=== PATIENT | female | born 1945 | race Caucasian/White ===

== ENCOUNTER 2017-09-28 08:28 | Emergency (ER) | payer MEDICARE ==
[2017-09-28] MEDS ORDERED: Acetaminophen 500 MG TAB ONE (09:07)
[2017-09-28 09:47] LABS: #Lymphocytes 0.5 thou/uL (1.20-3.40); #Monocytes 0.4 thou/uL (0.11-0.59); #Neutrophils 6.4 thou/uL (1.40-6.50); %Basophils 0.2 % (0.0-1.0); %Eosinophils 0.3 % (0.0-10.0); %Lymphocytes 6.7 % (21.0-51.0); %Monocytes 4.9 % (0.0-10.0); %Neutrophils 87.9 % (42.0-75.0); Hemoglobin 11.4 g/dL (12.0-16.0); Mean Corpuscular HGB CONC 34.9 g/dL (32.0-36.0); Mean Corpuscular Hemoglobin 33.8 pg (27.0-31.0); Mean Platelet Volume 7.7 fL (7.4-10.4); Platelet Count 151 thou/uL (130-400); RBC Distribution Width 12.8 % (11.5-14.5); Red Blood Cell (RBC) Count 3.37 mill/uL (4.20-5.40); White Blood Cell (WBC) Count 7.3 thou/uL (4.8-10.8)
[2017-09-28 10:12] LABS: ALT (SGPT) 158 U/L (8-55); AST (SGOT) 300 U/L (5-34); Albumin 3.9 g/dL (3.4-4.8); Alkaline Phosphatase 97 U/L (40-150); Anion Gap 14 mmol/L (10-20); BUN (Urea Nitrogen) 25 mg/dL (9.8-20.1); Bilirubin, Total 1.5 mg/dL (0.2-1.2); CK (CPK) 48 U/L (29-168); Calc. Creatinine Clearance 0 mL/min (70-130); Calcium 9.2 mg/dL (7.8-10.44); Carbon Dioxide 24 mmol/L (23-31); Chloride 105 mmol/L (98-107); Estimated GFR-MDRD 61; Globulin 2.6 g/dL (2.4-3.5); Glucose 124 mg/dL (83-110); Lipase 35 U/L (8-78); Potassium 4.2 mmol/L (3.5-5.1); Protein, Total 6.5 g/dL (6.0-8.3); Sodium 139 mmol/L (136-145)
--- NOTE | 2017-09-28 10:50 | ULT ---
GALLBLADDER ULTRASOUND: History: Right sided abdomen pain. FINDINGS: Real-time imaging of the right upper quadrant demonstrates some small echogenic foci with some faint shadowing within the gallbladder lumen consistent with some small stones. Common duct is 4 mm. Visual ized liver parenchyma shows no focal abnormalities. Pancreas is obscured. Right kidney is normal in s ize and not obstructed. There is mild cortical thinning present. IMPRESSION: Small gallstones with a normal caliber common duct and a negative ultrasound Benavides's sign. POS: [facility]
[2017-09-28 11:38] LABS: Bilirubin Small (Negative); Blood, Urine Negative (Negative); Clarity CLEAR (Clear); Glucose, Urine (Dipstick) Negative (Negative); Leukocyte Trace (Negative); Nitrite Negative (Negative); Protein, Urine (Dipstick) Negative (Neg-Trace); Specific Gravity, Urine 1.019 (1.002-1.036)
[2017-09-28 11:39] LABS: Bacteria/HPF None Seen HPF (None Seen); Hyaline Casts/LPF 0-3 HYALINE CAST LPF (0-3 Hyaline); Pathc Cast-AUWi Flag 0.14 (0-2.49); RBC/HPF 0-3 HPF (0-3); Squamous Epithelial 0-3 HPF (0-3); WBC/HPF 0-3 HPF (0-3)
--- NOTE | 2017-11-27 16:12 | EKG ---
Test Reason : ER INDICATION Blood Pressure : / mmHG Vent. Rate : 067 BPM Atrial Rate : 067 BPM P-R Int : 152 ms QRS Dur : 130 ms QT Int : 426 ms P-R-T Axes : 033 001 015 degrees QTc Int : 450 ms Normal sinus rhythm Right bundle branch block Abnormal ECG Confirmed by GERDA QUIROS, AYLIN ([id number]), order editor MATTHEW SHEIKH ([id number]) on 11/27/2017 4:11:30 PM Referred By: Confirmed By:AYLIN LORENZ MD
== END 2017-09-28 14:17 | disposition home or self-care (01) ==
LOC: ERS 08:28
DX: K80.20 Calculus of gallbladder without cholecystitis without obstruction (principal); J45.909 Unspecified asthma, uncomplicated; I10 Essential (primary) hypertension; K21.9 Gastro-esophageal reflux disease without esophagitis
CPT/HCPCS: 36415; 76705; 80053; 81003; 81015; 82550; 83605; 83690; 85025; 87040; 87077; 87149; 87186; 87804; 93005

== ENCOUNTER 2017-09-29 13:57 | Inpatient (IN) | payer MEDICARE ==
[2017-09-29 14:50] LABS: #Lymphocytes 0.5 thou/uL (1.20-3.40); #Monocytes 0.5 thou/uL (0.11-0.59); #Neutrophils 5.9 thou/uL (1.40-6.50); %Basophils 0.4 % (0.0-1.0); %Eosinophils 0.7 % (0.0-10.0); %Lymphocytes 7.5 % (21.0-51.0); %Monocytes 7.3 % (0.0-10.0); %Neutrophils 84.2 % (42.0-75.0); Hemoglobin 11.8 g/dL (12.0-16.0); Mean Corpuscular HGB CONC 34.7 g/dL (32.0-36.0); Mean Corpuscular Hemoglobin 33.3 pg (27.0-31.0); Mean Platelet Volume 7.4 fL (7.4-10.4); Platelet Count 152 thou/uL (130-400); RBC Distribution Width 13.1 % (11.5-14.5); Red Blood Cell (RBC) Count 3.54 mill/uL (4.20-5.40)
[2017-09-29 15:28] LABS: ALT (SGPT) 159 U/L (8-55); AST (SGOT) 118 U/L (5-34); Albumin 3.9 g/dL (3.4-4.8); Alkaline Phosphatase 107 U/L (40-150); Anion Gap 9 mmol/L (10-20); BUN (Urea Nitrogen) 27 mg/dL (9.8-20.1); Bilirubin, Total 1.5 mg/dL (0.2-1.2); Calc. Creatinine Clearance 0 mL/min (70-130); Calcium 9.4 mg/dL (7.8-10.44); Carbon Dioxide 28 mmol/L (23-31); Chloride 103 mmol/L (98-107); Estimated GFR-MDRD 37; Globulin 2.8 g/dL (2.4-3.5); Glucose 108 mg/dL (83-110); Lipase 26 U/L (8-78); Potassium 3.9 mmol/L (3.5-5.1); Protein, Total 6.7 g/dL (6.0-8.3); Sodium 136 mmol/L (136-145)
[2017-09-29] MEDS ORDERED: Meropenem 1 GM in Sodium Chloride 0.9% 100 ML IVPB SCH (15:30)
[2017-09-29] MEDS ORDERED: MEROPENEM 1 GM/50 ML 1 GM in Premix Bag 1 BAG IVPB SCH (15:30)
[2017-09-29] MEDS ORDERED: Ondansetron HCl/PF 4 MG/2 ML Vial IVP PRN (17:56)
[2017-09-29] MEDS ORDERED: Bisacodyl 5 MG TAB PO PRN (17:56)
[2017-09-29 18:33] VITALS: BMI 38.2
--- NOTE | 2017-09-29 19:20 | HP ---
PRIMARY CARE PHYSICIAN: Austin Seaman M.D. CHIEF COMPLAINT: Bacteremia. HISTORY OF PRESENT ILLNESS: Ms. Sequeira is a pleasant 71-year-old lady who was seen at [facility] on 09/29/2017. She has a history of rheumatoid arthritis, on methotrexate therapy for the last one year. She also reports receiving a steroid injection for shingles about 4 or 5 weeks ago. She was doing well until yesterday morning. Yesterday morning, she developed right upper quadrant pain. She describes it as sharp, nonradiating. She came to the emergency room. The pain resolved. She was diagnosed with cholelithiasis. She was discharged home yesterday. Today, patient was asked to come to the emergency room because her blood cultures came back positive. She currently denies any chest pain. She reports having a temperature of 100 degrees Fahrenheit at home. She denies any nausea or vomiting. She denies any diarrhea or abdominal pain. REVIEW OF SYSTEMS: The following complete review of systems was negative, unless otherwise mentioned in the HPI or below: Constitutional: Weight loss or gain, ability to conduct usual activities. Skin: Rash, itching. Eyes: Double vision, pain. ENT/Mouth: Nose bleeding, neck stiffness, pain, tenderness. Cardiovascular: Palpitations, dyspnea on exertion, orthopnea. Respiratory: Shortness of breath, wheezing, cough, hemoptysis, fever or night sweats. Gastrointestinal: Poor appetite, abdominal pain, heartburn, nausea, vomiting, constipation, or diarrhea. Genitourinary: Urgency, frequency, dysuria, nocturia. Musculoskeletal: Pain, swelling. Neurologic/Psychiatric: Anxiety, depression. Allergy/Immunologic: Skin rash, bleeding tendency. PAST MEDICAL HISTORY: Significant for hypertension, asthma, gastroesophageal reflux disease, dyslipidemia, hypothyroidism, and rheumatoid arthritis. PAST SURGICAL HISTORY: Tonsillectomy, hysterectomy, hemorrhoidectomy and fissure repair. SOCIAL HISTORY: The patient denies tobacco use, alcohol use or recreational drug use. FAMILY HISTORY: Significant for myocardial infarction in both parents. ALLERGIES: No known drug allergies. CURRENT MEDICATIONS: Include atenolol 50 mg daily, folic acid 1 mg daily, hydrochlorothiazide 12.5 mg daily, lisinopril 20 mg daily, levothyroxine 125 mcg daily, meloxicam 15 mg daily, methotrexate 2.5 mg daily, pantoprazole 40 mg daily, simvastatin 40 mg daily, and sulfasalazine 500 mg daily. PHYSICAL EXAMINATION: GENERAL: Ms. Sequeira is awake and alert, not in acute distress. She is afebrile. She is obese. VITAL SIGNS: Blood pressure is 113/64, pulse is 51. She is breathing at rate of 18, and saturating 94% on room air. EYES: No scleral icterus. No conjunctival pallor. ENT: Dry mucosal membranes, no oropharyngeal erythema or exudates. NECK: Supple, nontender, normal range of movement. Trachea is midline. RESPIRATORY: Accessory muscles of breathing are not active. Chest wall movements are symmetric bilaterally. LUNGS: Clear to auscultation without wheeze, rhonchi or crepitations. CARDIOVASCULAR: S1 and S2 are heard, regular. Peripheral pulses palpable. No carotid bruit, no pericardial rub. ABDOMEN: Soft, nontender, bowel sounds heard, no hepatomegaly, no splenomegaly. NEUROLOGIC: Cranial nerves II-XII intact. Deep tendon reflexes are 2+. MUSCULOSKELETAL: Power is 5/5 in all 4 extremities. Normal range of movement at all major extremity joints. SKIN: No rashes or subcutaneous nodules. LYMPHATIC: No cervical lymphadenopathy. PSYCHIATRIC: Normal mood, normal affect. The patient is oriented to person, place, and time. LABORATORY DATA: Ms. Sequeira's labs and investigations were reviewed. She had an abdominal ultrasound yesterday, which showed small gallstones within normal caliber common duct and a negative ultrasound Benavides sign. Today, she has white count of 7000, hemoglobin 11.8, platelet count 152, normal electrolytes, elevated blood urea nitrogen of 27, elevated creatinine of 1.38, last known creatinine 0.91 yesterday, elevated total bilirubin of 1.5, same as yesterday, elevated AST of 118, down from 300 yesterday and elevated ALT of 159 , up from 158 yesterday. Her alkaline phosphatase level is normal. Lactic acid level is normal. Blood cultures from yesterday's emergency room visit are reporting positive for gram negative nicolas in 1 culture and Escherichia coli in the other culture. ASSESSMENT AND PLAN: Ms. Sequeira is a pleasant 71-year-old lady who was seen at [facility] on 09/29/2017. Her problem list includes: 1. Bacteremia: Ms. Sequeira will be admitted to the hospital for further management, including broad-spectrum intravenous antibiotics. Given the preliminary identification of Escherichia coli, we will start her on meropenem to cover for ESBL positive organisms. Await final cultures and taper antibiotic spectrum. Please note patient is an immunocompromised patient, given her history of methotrexate use. She also reports being on steroid injections every 3 months in the past, but not recently. 2. Rheumatoid arthritis, stable. 3. Dyslipidemia: Stable, continue statin. 4. Gastroesophageal reflux disease: Stable, continue proton pump inhibitor. 5. Hypertension: Monitor vital signs, titrate antihypertensives as needed. Please note that patient is bradycardic at this time. If this continues, may need her atenolol discontinued. 6. Asthma: Stable. Many thanks for allowing me to participate in your patient's care. Please feel free to contact me with any questions or concerns. LEVEL OF RISK: Moderate. LEVEL OF COMPLEXITY: Moderate. MTDD
[2017-09-29] MEDS: Sodium Chloride 0.9% 1,000 ML IV SCH (21:25)
[2017-09-30] MEDS: Meropenem 1 GM in Sodium Chloride 0.9% 100 ML IVPB SCH ×2 (00:30→09:14)
[2017-09-30 05:11] LABS: #Eosinphils 0.1 thou/uL (0.0-0.7); #Monocytes 0.7 thou/uL (0.11-0.59); #Neutrophils 3.6 thou/uL (1.40-6.50); %Basophils 0.4 % (0.0-1.0); %Eosinophils 1.4 % (0.0-10.0); %Lymphocytes 18.9 % (21.0-51.0); %Monocytes 12.8 % (0.0-10.0); %Neutrophils 66.5 % (42.0-75.0); Hemoglobin 10.8 g/dL (12.0-16.0); Mean Corpuscular HGB CONC 35.2 g/dL (32.0-36.0); Mean Corpuscular Hemoglobin 33.8 pg (27.0-31.0); Mean Platelet Volume 8.1 fL (7.4-10.4); Platelet Count 142 thou/uL (130-400); RBC Distribution Width 12.8 % (11.5-14.5); Red Blood Cell (RBC) Count 3.18 mill/uL (4.20-5.40); White Blood Cell (WBC) Count 5.5 thou/uL (4.8-10.8)
[2017-09-30 05:14] LABS: ALT (SGPT) 109 U/L (8-55); AST (SGOT) 64 U/L (5-34); Albumin 3.4 g/dL (3.4-4.8); Alkaline Phosphatase 94 U/L (40-150); Anion Gap 7 mmol/L (10-20); BUN (Urea Nitrogen) 23 mg/dL (9.8-20.1); Bilirubin, Total 0.9 mg/dL (0.2-1.2); Calc. Creatinine Clearance 68 mL/min (70-130); Carbon Dioxide 29 mmol/L (23-31); Chloride 106 mmol/L (98-107); Estimated GFR-MDRD 45; Globulin 2.4 g/dL (2.4-3.5); Glucose 99 mg/dL (83-110); Potassium 3.5 mmol/L (3.5-5.1); Protein, Total 5.8 g/dL (6.0-8.3); Sodium 138 mmol/L (136-145)
[2017-09-30] MEDS ORDERED: MEROPENEM 1 GM/50 ML 1 GM in Premix Bag 1 BAG IVPB SCH (08:30)
[2017-09-30] MEDS ORDERED: Methotrexate Sodium 2.5 MG TAB PO SCH (10:00)
[2017-09-30] MEDS: Sodium Chloride 0.9% 1,000 ML IV SCH (11:26)
--- NOTE | 2017-09-30 11:39 | PDOC.PN ---
- Subjective Encounter Start Date: 09/30/17 Encounter Start Time: 07:20 Pt seen for followup re: bacteremia. Denies chest pain, shortness of breath, fevers or chills. - Objective MAR Reviewed: Yes Vital Signs & Weight: Vital Signs (12 hours) Temp Pulse Resp BP Pulse Ox 09/30/17 10:30 99.1 F 55 L 18 101/65 95 Result Diagrams: 09/30/17 04:11 09/30/17 04:11 Phys Exam - Physical Examination Obese HEENT: PERRLA, moist MMs, sclera anicteric, oral pharynx no lesions Neck: no nodes, no JVD, supple, full ROM Respiratory: no wheezing, no rales, no rhonchi, clear to auscultation bilateral Cardiovascular: RRR, no rub Gastrointestinal: soft, non-tender, no distention, positive bowel sounds Neurological: moves all 4 limbs Psychiatric: normal affect, A&O x 3 Dx/Plan (1) Bacteremia Code(s): R78.81 - BACTEREMIA Status: Acute Comment: E. coli bacteremia. Step down to oral antibiotics tomorrow (after possible surgery). (2) Cholelithiasis Code(s): K80.20 - CALCULUS OF GALLBLADDER W/O CHOLECYSTITIS W/O OBSTRUCTION Status: Acute Comment: Surgical consult for elimination of bacteremic source (3) GLENN (acute kidney injury) Code(s): N17.9 - ACUTE KIDNEY FAILURE, UNSPECIFIED Status: Acute Comment: Creatinine improving, continue IV fluids and hold nephrotoxic medications (4) HTN (hypertension) Code(s): I10 - ESSENTIAL (PRIMARY) HYPERTENSION Status: Chronic Comment: Monitor vital signs, titrate antihypertensives as needed (5) Dyslipidemia Code(s): E78.5 - HYPERLIPIDEMIA, UNSPECIFIED Status: Chronic Comment: continue statin (6) Hypothyroidism Code(s): E03.9 - HYPOTHYROIDISM, UNSPECIFIED Status: Chronic Comment: continue synthroid (7) Rheumatoid arthritis Code(s): M06.9 - RHEUMATOID ARTHRITIS, UNSPECIFIED Status: Chronic Comment: continue methotrexate and folic acid - Plan continue antibiotics, out of bed/ambulate, DVT proph w/SCDs * . Review of Systems - Review of Systems Constitutional: negative: fever, chills, sweats, weakness, malaise Respiratory: negative: Cough, Shortness of Breath, Hemoptysis, SOB with Excertion, Pleuritic Pain, Wheezing Cardiovascular: negative: chest pain, palpitations, orthopnea, paroxysmal nocturnal dyspnea, edema, light headedness Gastrointestinal: negative: Nausea, Vomiting, Abdominal Pain, Diarrhea, Constipation, Melena, Hematochezia Genitourinary: negative: Dysuria, Frequency, Incontinence, Hematuria, Retention Skin: negative: Rash, Lesions, Josep, Bruising - Medications/Allergies Allergies/Adverse Reactions: Allergies Allergy/AdvReac Type Severity Reaction Status Date / Time No Known Allergies Allergy Verified 09/29/17 22:29 Medications: Current Medications Atorvastatin Calcium (Lipitor) 20 mg PO DAILY [facility] Bisacodyl (Dulcolax) 10 mg PO DAILYPRN PRN PRN Reason: Constipation Folic Acid (Folvite) 1 mg PO DAILY [facility] Sodium Chloride (Normal Saline 0.9%) 1,000 mls @ 70 mls/hr IV .[id number] [facility] Last Admin: 09/30/17 11:26 Dose: 1,000 mls Meropenem 1 gm/ Device 50 mls @ 100 mls/hr IVPB 0800,1600,2359 [facility] Meropenem 1 gm/ Device 50 mls @ 100 mls/hr IVPB NOW [facility] Stop: 09/30/17 12:00 Last Admin: 09/30/17 09:36 Dose: 50 mls Levothyroxine Sodium (Synthroid) 125 mcg PO 0600 [facility] Methotrexate Sodium (Methotrexate Sodium) 12.5 mg PO Sa@0900 [facility] Ondansetron HCl (Zofran) 4 mg IVP Q6H PRN PRN Reason: Nausea/Vomiting Pantoprazole Sodium (Protonix) 40 mg PO DAILY [facility] Sulfasalazine (Azulfidine) 500 mg PO BIDPC [facility]
[2017-09-30] MEDS ORDERED: Ketorolac Tromethamine 30 MG/ML VIAL IVP SCH (11:45)
[2017-09-30] MEDS ORDERED: Acetaminophen 1,000 MG in Premix Bag 1 BAG IVPB SCH (11:45)
[2017-09-30] MEDS ORDERED: Scopolamine 1.5 mg/72 hour Patch TD SCH ×2 (11:45→12:00)
[2017-09-30] MEDS: MEROPENEM 1 GM/50 ML 1 GM in Premix Bag 1 BAG IVPB SCH (15:30)
[2017-09-30] MEDS: sulfaSALAzine 500 MG TAB PO SCH (17:47)
[2017-09-30] MEDS ORDERED: sulfaSALAzine 500 MG TAB PO SCH (18:00)
--- NOTE | 2017-09-30 18:17 | HP ---
HISTORY OF PRESENT ILLNESS: Cayla Sequeira is a 71-year-old female who presented to the emergency r o on 09/28/2017 with right upper quadrant pain and back radiation. She has a long history of past reflux and epigastric intermittent pains. Ultrasound of gallbladder revealed gallstones. She on elaine t occasion was noted to have had two blood cultures later found to be positive for E. coli, 2 of 2. She had repeat blood cultures on return to the emergency room on 09/29/2017 that demonstrated no grow th to date. In the emergency room, her white count was noted be 5 and hemoglobin 10.8. Her liver fu nction tests were essentially normal with bilirubin 1.5 on admission, 1.5 yesterday morning, repeat b ilirubin this morning normal. Her creatinine is improved from 1.38 to 1.18. Her AST, ALT have impro jaleel from 118/159 respectfully to 64/109 today. Her lipase is normal. Ultrasound revealed gallstones , normal bile duct caliber. Urine cultures not obtained. ALLERGIES: None. TOBACCO: None. ALCOHOL: Rarely. HOME MEDICATIONS: Lisinopril/hydrochlorothiazide 20/12.5 daily, folic acid a day, atenolol 50 mg b.i .d., meloxicam 15 mg daily, Synthroid 125 mcg daily, methotrexate 12.5 mg every 7 day, simvastatin 40 mg a day, Protonix 40 mg a day, sulfasalazine 500 mg p.o. b.i.d. PAST MEDICAL HISTORY: 1. Rheumatoid arthritis. 2. Obesity. 3. Intentional weight loss of 70-80 pounds. 4. Dyslipidemia. 5. Hypothyroidism. 6. History of GERD. PAST SURGICAL HISTORY: Tonsillectomy, hysterectomy, hemorrhoidectomy and anal fissure repair. REVIEW OF SYSTEMS: Ten point noncontributory, otherwise, she is up to date on colonoscopies. PHYSICAL EXAMINATION: VITAL SIGNS: 5 foot 4, 223 pounds, 38 BMI, 99 degrees, 55, 101/65. HEENT: Intact. No focal deficit, no lymphadenopathy, neck, axilla, or groin. LUNGS: Clear to auscultation. CARDIAC: Regular rate and rhythm without murmur or gallop. ABDOMEN: Soft, nontender, no masses. EXTREMITIES: Unremarkable. ASSESSMENT AND PLAN: 1. Mild chronic kidney disease. 2. Rheumatoid arthritis. 3. Positive blood cultures, probably not related to her gallbladder, but could be from urinary tract infection. Urine culture is not obtained, probably would not be worth obtaining at this time. She remains afebrile. 4. Symptomatic gallstones. I would recommend laparoscopic video cholecystectomy. Risk of infection , bleeding, visceral biliary injury, open procedure, discussed, she consents. Due to her bilirubin e levation 1.5, we will plan cholangiograms. Risk and benefits explained, and she consents. Questions answered. I explained her that her positive blood cultures are probably not secondary to her gallbl adder disease, but a laparoscopic cholecystectomy should be considered as she is symptomatic gallston es and to avoid future biliary attacks and to prevent complications of cholelithiasis. Since she is symptomatic, we would proceed with laparoscopic cholecystectomy.
[2017-09-30] MEDS: SIMVASTATIN 40 MG PO SCH (20:31)
[2017-10-01] MEDS: MEROPENEM 1 GM/50 ML 1 GM in Premix Bag 1 BAG IVPB SCH ×4 (00:33→23:14)
[2017-10-01] MEDS: Sodium Chloride 0.9% 1,000 ML IV SCH ×5 (03:43→23:15)
[2017-10-01] MEDS: Levothyroxine Sodium 125 MCG TAB PO SCH (05:48)
[2017-10-01] MEDS ORDERED: Levothyroxine Sodium 125 MCG TAB PO SCH (06:00)
[2017-10-01] MEDS ORDERED: Ketorolac Tromethamine 30 MG/ML VIAL IVP SCH (06:00)
[2017-10-01] MEDS ORDERED: Acetaminophen 1,000 MG in Premix Bag 1 BAG IVPB SCH (06:00)
[2017-10-01] MEDS: Folic Acid 1 MG TAB PO SCH (07:19)
[2017-10-01] MEDS: sulfaSALAzine 500 MG TAB PO SCH ×2 (07:20→18:56)
[2017-10-01] MEDS ORDERED: Atorvastatin Calcium 20 MG TAB PO SCH (09:00)
[2017-10-01] MEDS ORDERED: Folic Acid 1 MG TAB PO SCH (09:00)
--- NOTE | 2017-10-01 14:09 | PDOC.PN ---
- Subjective Encounter Start Date: 10/01/17 Encounter Start Time: 12:00 Subjective: no abd pain or nausea -: feels better, is npo for lap radha - Objective MAR Reviewed: Yes Vital Signs & Weight: Vital Signs (12 hours) Temp Pulse Resp BP BP Pulse Ox 10/01/17 11:49 98.3 F 48 L 16 125/76 99 10/01/17 08:00 98.4 F 51 L 16 10/01/17 07:40 98.4 F 51 L 16 109/69 96 10/01/17 04:00 98.2 F 51 L 18 128/70 93 L I&O: 09/30/17 10/01/17 10/02/17 06:59 06:59 06:59 Intake Total 1530 Balance 1530 Result Diagrams: 09/30/17 04:11 09/30/17 04:11 Phys Exam - Physical Examination HEENT: PERRLA, moist MMs Neck: no JVD, supple Respiratory: no wheezing, no rales Cardiovascular: RRR, no significant murmur Gastrointestinal: soft, non-tender, positive bowel sounds Musculoskeletal: no edema, pulses present Neurological: non-focal, moves all 4 limbs Psychiatric: normal affect, A&O x 3 Dx/Plan (1) Bacteremia Code(s): R78.81 - BACTEREMIA Status: Acute Comment: E. coli bacteremia. (2) Cholelithiasis Code(s): K80.20 - CALCULUS OF GALLBLADDER W/O CHOLECYSTITIS W/O OBSTRUCTION Status: Acute Qualifiers: Cholelithiasis location: gallbladder Cholecystitis presence: with cholecystitis Cholecystitis acuity: acute and chronic Biliary obstruction: with biliary obstruction Qualified Code(s): K80.13 - Calculus of gallbladder with acute and chronic cholecystitis with obstruction (3) Dyslipidemia Code(s): E78.5 - HYPERLIPIDEMIA, UNSPECIFIED Status: Chronic Comment: continue statin (4) HTN (hypertension) Code(s): I10 - ESSENTIAL (PRIMARY) HYPERTENSION Status: Chronic Qualifiers: Hypertension type: essential hypertension Qualified Code(s): I10 - Essential (primary) hypertension Comment: Monitor vital signs, titrate antihypertensives as needed (5) Hypothyroidism Code(s): E03.9 - HYPOTHYROIDISM, UNSPECIFIED Status: Chronic Qualifiers: Hypothyroidism type: unspecified Qualified Code(s): E03.9 - Hypothyroidism , unspecified Comment: continue synthroid (6) Rheumatoid arthritis Code(s): M06.9 - RHEUMATOID ARTHRITIS, UNSPECIFIED Status: Chronic Qualifiers: Rheumatoid arthritis location: unspecified site Rheumatoid factor presence : unspecified presence Qualified Code(s): M06.9 - Rheumatoid arthritis, unspecified Comment: continue methotrexate and folic acid (7) Chronic anemia Code(s): D64.9 - ANEMIA, UNSPECIFIED Status: Chronic - Plan for lap radha today -: may switch antibiotics to levaquin daily for 7 days due to bacteremia -: is on gentle iv hydration until surgery -: d/w daughters and patient at bedside -: hemostable, has been afebrile from yesterday * . Review of Systems - Medications/Allergies Allergies/Adverse Reactions: Allergies Allergy/AdvReac Type Severity Reaction Status Date / Time No Known Allergies Allergy Verified 09/29/17 22:29 Medications: Current Medications Bisacodyl (Dulcolax) 10 mg PO DAILYPRN PRN PRN Reason: Constipation Sodium Chloride (Normal Saline 0.9%) 1,000 mls @ 70 mls/hr IV .[id number] [facility] Last Admin: 10/01/17 08:42 Dose: Not Given Meropenem 1 gm/ Device 50 mls @ 100 mls/hr IVPB 0800,1600,2359 [facility] Last Admin: 10/01/17 08:23 Dose: 50 mls Sodium Chloride (Normal Saline 0.9%) 1,000 mls @ 100 mls/hr IV .Q10H [facility] Last Admin: 10/01/17 08:24 Dose: 1,000 mls Acetaminophen 1,000 mg/ Device 100 mls @ 400 mls/hr IVPB [facility] Stop: 10/01/17 21:00 Ketorolac Tromethamine (Toradol) 30 mg IVP [facility] Stop: 10/01/17 21:00 Methotrexate Sodium (Methotrexate Sodium) 12.5 mg PO Sa@0900 [facility] Ondansetron HCl (Zofran) 4 mg IVP Q6H PRN PRN Reason: Nausea/Vomiting Simvastatin 40 Mg 0 each PO HS [facility] Last Admin: 09/30/17 20:31 Dose: 1 each Sulfasalazine 500 Mg (Tab) 0 each PO BID-PC [facility] Last Admin: 04/20/18 07:20 Dose: Not Given Folic Acid 1 Mg Tab 0 each PO QAM-WM [facility] Last Admin: 10/01/17 07:19 Dose: Not Given Pantoprazole 40 Mg (Tab) 0 each PO DAILY [facility] Last Admin: 10/01/17 08:16 Dose: 1 each Levothyroxine Sodium (125 Mcg Tab) 0 each PO 0600 [facility] Last Admin: 10/01/17 05:48 Dose: 1 each Scopolamine (Transderm Scop) 1.5 mg TD Q3D@0900 [facility] Sodium Chloride (Flush - Normal Saline) 10 ml IVF Q12HR [facility] Last Admin: 10/01/17 08:16 Dose: 10 ml Sodium Chloride (Flush - Normal Saline) 10 ml IVF PRN PRN PRN Reason: Saline Flush
[2017-10-01] MEDS ORDERED: Fentanyl 100 MCG/2 ML VIAL ONE ×3 (14:45→16:21)
[2017-10-01] MEDS ORDERED: Bupivacaine HCl 0.5%/Epinephrine 1:200,000/PF 30 ml Vial ONE (14:45)
[2017-10-01] MEDS ORDERED: Iothalamate Meglumine 60% 50 ML VIAL FS ONE (14:47)
[2017-10-01] MEDS ORDERED: traMADol HCl 50 MG TAB PO PRN ×4 (16:11→21:39)
[2017-10-01] MEDS ORDERED: Acetaminophen 500 MG TAB PO PRN (16:11)
[2017-10-01] MEDS ORDERED: Ibuprofen 600 MG TAB PO PRN (16:11)
--- NOTE | 2017-10-01 16:18 | RAD ---
INTRAOPERATIVE CHOLANGIOGRAM: 10/01/17 HISTORY: Cholecystitis. FINDINGS/IMPRESSION: Intraoperative fluoroscopy was provided for cholangiogram as performed by Dr. Capone. FLUORO TIME: 13 seconds. Spot fluoroscopic images show operative hardware overlying the gallbladder fossa. There is opacificat ion of a nondilated common duct with contrast passing into the duodenum. POS: [facility]
[2017-10-01] MEDS ORDERED: Dexamethasone 20 MG/5 ML VIAL ONE (17:05)
[2017-10-01] MEDS ORDERED: Metoprolol Tartrate 5 MG/5 ML VIAL ONE (17:05)
[2017-10-01] MEDS ORDERED: Lidocaine 1% PF 5 ML VIAL ONE (17:05)
[2017-10-01] MEDS ORDERED: PROPOFOL 200 MG/20 ML VIAL ONE (17:05)
[2017-10-01] MEDS ORDERED: Promethazine HCl 25 MG/ML VIAL SLOW IVP PRN (17:20)
[2017-10-01] MEDS ORDERED: Promethazine HCl 25 MG/ML VIAL IM PRN (17:20)
[2017-10-01] MEDS ORDERED: Ondansetron HCl/PF 4 MG/2 ML Vial IVP PRN (17:20)
--- NOTE | 2017-10-01 18:58 | OP ---
DATE OF PROCEDURE: 10/01/2017 PREOPERATIVE DIAGNOSES: 1. Chronic cholecystitis, cholelithiasis. 2. History of bacteremia, probably unrelated to her gallbladder with positive blood cultures Escheri brandon coli. POSTOPERATIVE DIAGNOSES: 1. Chronic cholecystitis, cholelithiasis. 2. History of bacteremia, probably unrelated to her gallbladder with positive blood cultures Escheri brandon coli. PROCEDURES: Laparoscopic video cholecystectomy, normal cholangiogram, small bile duct caliber withou t filling defects. SURGEON: Bishop Capone MD ANESTHESIA: General, local 0.5% Marcaine with epinephrine 30 mL. DESCRIPTION OF PROCEDURE: The patient was taken to the operating room under general anesthesia. Abd omen was prepared with ChloraPrep, draped in routine fashion. Local anesthetic 0.5% Marcaine with ep inephrine infiltrated into the skin and subcutaneous tissue about the operative site. Infraumbilical incision was made and pneumoperitoneum to 15 mmHg was obtained with the Veress needle, replaced with 5-port, laparoscope inserted. Right subxiphoid incision was made and 11-port placed. Right subcost al incision was made, mid clavicular anterior axillary lines with 5-ports placed. Liver appeared to be large and fatty. Fundus of the gallbladder was grasped and reflected cephalad. Infundibulum was grasped and reflected laterally. Cystic artery and duct dissected free. Critical view was obtained. Cystic artery singly clipped on the gallbladder side. An opening made in the cystic duct and chola ngiocath inserted. Cholangiogram was obtained revealing free flow of contrast into the duodenum with out filling defects and a small-caliber common hepatic, common bile, and intrahepatic ducts. Cholang iocath was removed. Cystic duct stump was doubly clipped. Cystic artery was double clipped. Cystic artery and duct divided and gallbladder dissected free from the bed obtaining good hemostasis with t he current of the cautery. Good hemostasis was ensured as gallbladder removed and submitted to Patho logy. Gallbladder bed was inspected. Good hemostasis was obtained with clips and cautery. Good hem ostasis was noted. Irrigant and pneumoperitoneum evacuated. All instruments removed and all skin in cisions were approximated with interrupted subdermal 4-0 Monocryl and DermaGlue applied. Note: The patient in the middle of the operation developed tachyarrhythmia 140 and was given metopro lol and we are observing her now for resolution.
[2017-10-01] MEDS: Atenolol 50 MG TAB PO SCH (20:07)
[2017-10-01] MEDS: SIMVASTATIN 40 MG PO SCH (20:08)
[2017-10-01] MEDS ORDERED: diphenhydrAMINE 25 MG CAP PO PRN (23:24)
[2017-10-02] MEDS: Levothyroxine Sodium 125 MCG TAB PO SCH (05:00)
[2017-10-02] MEDS ORDERED: Levothyroxine 150 MCG TAB PO SCH (06:00)
[2017-10-02] MEDS: Sodium Chloride 0.9% 1,000 ML IV SCH (07:20)
[2017-10-02] MEDS: MEROPENEM 1 GM/50 ML 1 GM in Premix Bag 1 BAG IVPB SCH (08:16)
[2017-10-02] MEDS: SIMVASTATIN 40 MG PO SCH (08:17)
[2017-10-02] MEDS: sulfaSALAzine 500 MG TAB PO SCH (08:19)
[2017-10-02] MEDS: Folic Acid 1 MG TAB PO SCH (08:20)
[2017-10-02] MEDS: Atenolol 50 MG TAB PO SCH (08:21)
[2017-10-02] MEDS ORDERED: Meloxicam 15 MG TAB PO SCH (09:00)
[2017-10-02] MEDS ORDERED: Polyethylene Glycol 3350 17 GM Packet PO SCH (09:00)
[2017-10-02] MEDS ORDERED: Methotrexate Sodium 2.5 MG TAB PO SCH (09:00)
[2017-10-02] MEDS ORDERED: Lisinopril/Hydrochlorothiazide 20 mg/12.5 mg Tablet PO SCH (09:00)
[2017-10-02 12:07] VITALS: BP 98/61; TEMP 99.1
--- NOTE | 2017-10-02 21:15 | DIS ---
DATE OF ADMISSION: 09/30/2017 DATE OF DISCHARGE: 10/02/2017 DISCHARGE DIAGNOSES: Bacteremia, acute cholelithiasis, dyslipidemia, hypertension, hypothyroidism, r heumatoid arthritis, and chronic anemia. HISTORY OF PRESENT ILLNESS AND HOSPITAL COURSE: Ms. Cayla Sequeira is a 71-year-old female, who pre sented to the emergency room on 09/28/2017 with right upper quadrant pain, which radiated to the back . She has a history of reflux and intermittent epigastric pain. She had an ultrasound, which showed gallstones. She was also noted to have two blood cultures, which was later found out to be positive for E. coli, 2 of 2 bottles. She had repeat blood cultures upon return to the emergency room on that showed no growths. In the emergency room, her WBC was noted to be 5 and hemoglobin of 1 0.8. Liver function tests were essentially normal with a bilirubin of 1.5 on admission and her creat inine had improved to 1.38-1.8. Due to her right upper quadrant pain, which she described as sharp, nonradiating and diagnosis of cholelithiasis, General Surgery was consulted and the patient had lapar oscopic video cholecystectomy, which had normal cholangiogram and small bites bile duct caliber witho ut filling defect. She improves after surgery and was able to tolerate a diet and therefore deemed s table to be discharged home. DISCHARGE MEDICATIONS: Tylenol extra strength 1000 mg every 6 hours as needed, ibuprofen 600 mg ever y 6 hours as needed, levothyroxine 125 mcg daily, MiraLax 17 grams daily, tramadol 50 mg every 6 hour s as needed for pain, sulfasalazine 500 mg twice daily after meals, simvastatin 40 mg daily, pantopra zole 40 mg daily, methotrexate 12.5 mg every 7 days, meloxicam 15 mg daily, lisinopril/hydrochlorothi azide 20/12.5 mg 1 tablet daily, folic acid 1 mg daily, atenolol 50 mg twice daily. PHYSICAL EXAMINATION: She was examined on the day of discharge: VITAL SIGNS: Temperature 98, pulse rate 60, respiratory rate 18, oxygen saturation 92% on room air, blood pressure 108/54. GENERAL: Not in acute distress, sitting up in chair, eating breakfast. HEENT: Normocephalic, atraumatic. Not pale, anicteric. Moist mucous membranes. RESPIRATORY: Vesicular breath sounds bilaterally. No wheezes or rales. CARDIOVASCULAR: S1 and S2 only with regular rate and rhythm. No murmurs, rubs or gallop. GASTROINTESTINAL: Soft, nontender, nondistended, positive bowel sounds. No hepatosplenomegaly. MUSCULOSKELETAL: No edema. NEUROLOGIC: Alert and well oriented to time, place and person. SKIN: Warm, dry, well-perfused. No rashes or lesions. PSYCHIATRIC: Normal mood and affect. LABORATORY DATA: WBC 5.5, hemoglobin 10.8, platelet count 142. Sodium 138, potassium 3.5, chloride 106, carbon dioxide 29, anion gap 7, BUN 23, creatinine 1.8, glucose 99, calcium 9.0. CONSULTS: General Surgery. IMAGING: Cholangiogram, results as stated in HPI. DIET: Low fat, low sodium diet. CARE GOALS: To follow up with her primary care physician within 1 week of discharge for repeat labs. ACTIVITY: Resume as tolerated. DISCHARGE TIME: 65 minutes including chart review and documentation.
[2017-10-03] MEDS ORDERED: Scopolamine 1.5 mg/72 hour Patch TD SCH (09:00)
--- NOTE | 2017-10-06 13:37 | PQF ---
I did not discharge this patient, pls forward to Dr. Latif. Thanks, Monica MORGAN,DARLENE Mayur WINSTON, MONICA [id number] CLINICAL DOCUMENTATION CLARIFICATION FORM: POST DISCHARGE Addendum to original discharge summary date: ____ Late entry note date: __ DATE: 10/06/2017 ATTN: DR. MONTERO Please exercise your independent, professional judgment in responding to the clarification form. Clinical indicators are provided on the bottom of this form for your review Please check appropriate box(es): [ ] Sepsis due to: [ ] SIRS due to non-infectious process (please specify etiology) [ ] with organ dysfunction [ ] without organ dysfunction [ ] Severe sepsis with acute organ dysfunction of: (Examples: respiratory failure, encephalopathy, acute kidney failure, other) [ ] Localized infection without sepsis [ ] Other diagnosis [ ] Unable to determine In addition, please specify: Present on Admission (POA): [ ] Yes [ ] No [ ] Unable to determine For continuity of documentation, please document condition throughout progress notes and discharge summary. Thank You. CLINICAL INDICATORS - SIGNS / SYMPTOMS / LABS: Positive blood cultures - E. COLI Decreased GFR, creatinine H&P - Bacteremia 09/30 -10/01 PN - Bacteremia - E.Coli Bacteremia 10/01 OP report - Bacteremia, "Probably unrelated to her gallbladder with positive blood cultures E. Coli" DS - Bacteremia. Acute Cholelithiasis RISK FACTORS: Bacteremia Surgery - Laparoscopic Cholecystectomy TREATMENTS: Positive Blood cultures IV fluids Antibiotics (This form is maintained as a part of the permanent medical record) 2014 [employer], [employer]. All Rights Reserved Angie Cameron CCS, [facility]-H [email or web address] [phone] MTDD
--- NOTE | 2017-10-11 06:44 | PQF ---
[employer] Operator Crystal Reports Winform ViewerST. LUKE'S WARREN HOSPITALDARLENE FAROOQ DAVID [id number] [facility] HospitalA- 4410 [id number] CLINICAL DOCUMENTATION CLARIFICATION FORM: POST DISCHARGE Addendum to original discharge summary date: ____ Late entry note date: __ DATE: 10/06/2017 ATTN: DR. SMITH Please exercise your independent, professional judgment in responding to the clarification form. Clinical indicators are provided on the bottom of this form for your review Please check appropriate box(es): [ x ] Sepsis due to: ____gram negative bacteremia [ ] SIRS due to non-infectious process (please specify etiology) [ ] with organ dysfunction [ ] without organ dysfunction [ ] Severe sepsis with acute organ dysfunction of: (Examples: respiratory failure, encephalopathy, acute kidney failure, other) [ ] Localized infection without sepsis [ ] Other diagnosis [ ] Unable to determine In addition, please specify: Present on Admission (POA): [ ] Yes [ ] No [ ] Unable to determine For continuity of documentation, please document condition throughout progress notes and discharge summary. Thank You. CLINICAL INDICATORS - SIGNS / SYMPTOMS / LABS: Positive blood cultures - E. COLI Decreased GFR, creatinine H&P - Bacteremia 09/30 -10/01 PN - Bacteremia - E.Coli Bacteremia 10/01 OP report - Bacteremia, "Probably unrelated to her gallbladder with positive blood cultures E. Coli" DS - Bacteremia. Acute Cholelithiasis RISK FACTORS: Bacteremia Surgery - Laparoscopic Cholecystectomy TREATMENTS: Positive Blood cultures IV fluids Antibiotics (This form is maintained as a part of the permanent medical record) 2014 [employer], [employer] All Rights Reserved Anige Cameron, NIKKO, GLEASON OPERATOR-H [email or web address] [phone] MTDD
== END 2017-10-02 15:44 | disposition home or self-care (01) | DRG 854 ==
LOC: ERS 13:57 → 2SW 16:35 → T4-A 18:11 → OBSVTOIN 09-30 08:37 → T4-A 09-30 10:57
PROVIDERS: ADMIT Internal Medicine; ATTEND Internal Medicine
PROC: 0FT44ZZ Resection of Gallbladder, Percutaneous Endoscopic Approach (ICD-10-PCS; principal; 2017-10-01)
PROC: BF130ZZ Fluoroscopy of Gallbladder and Bile Ducts using High Osmolar Contrast (ICD-10-PCS; 2017-10-01)
DX: A41.51 Sepsis due to Escherichia coli [E. coli] (principal); K80.12 Calculus of gallbladder with acute and chronic cholecystitis without obstruction; R78.81 Bacteremia; M06.9 Rheumatoid arthritis, unspecified; E78.5 Hyperlipidemia, unspecified; E03.9 Hypothyroidism, unspecified; K21.9 Gastro-esophageal reflux disease without esophagitis; J45.909 Unspecified asthma, uncomplicated; I10 Essential (primary) hypertension
CPT/HCPCS: 36415; 47532; 76705; 80053; 81003; 81015; 82550; 83605; 83690; 85025; 87040; 87077; 87149; 87186; 87804; 88304; 93005; 93010; 96365; 96374; J0131; J0670; J1100; J1610; J1885; J2001; J2185; J2704; J3010; J7050; J8610; Q9961